=== PATIENT | female | born 1960 | race Caucasian/White ===

== ENCOUNTER 2020-03-07 14:05 | Emergency (ER) | payer MEDICARE ==
[~2020-03-07] VITALS: Ht 185.4 cm; Wt 111.9 kg
[~2020-03-07 14:05] MED LIST: ACET325T9 PO; ACET650T26 PO; ALBU2.5V5 NEB; ALBU2.5V8; ALBU2.5V8 IH; ALBU5SOL2 IH; ALPR1TAB2 PO; AMLO2.5T2 PO; AMLO5TAB10 PO; ATEN25TA42 PO; BUSP10TA PO; BUSP30TA PO; CARI350T PO; CARI350T14 PO; CEFP200T PO; CEFU250T PO; CELE200C PO; CIPR500T94 PO; CLON0.5T20 PO; DICL100T PO; ESCITALOPRAM OX20 MG PO; ESOM40CA PO; FENT1SPR SL; FLUT16SP21 NS; FLUT1DIS3 IH; HYDR-2155 PO; HYDR-2765 PO; LAMO100T37 PO; LORA-254 PO; LURA40TA PO; MECL-75 PO; MELO15TA23 PO; MELO15TA6 PO; MOME13HF IH; MORP30CP12 PO; NITR100C6 PO; ONDA4TAB10 SL; OXYC1TAB7 PO; OXYC1TAB8 PO; POTA8TAB PO; PRAZ2CAP2 PO; PRAZ5CAP2 PO; PREG150C PO; QUET300T5 PO; SPIR50TA4 PO; SULF1TAB24 PO; TAPE100T7 PO; TEMA30CA6 PO; THEO300T26 PO; THEO400T2 PO; TIOT18CA IH; TIZA4CAP PO; TRAM50TA PO; VENL150T PO; [UNRECOGNIZED DRUG - OTHER]; [UNRECOGNIZED DRUG - OTHER] PO; atarax PO; trazadone; venlafaxine
[2020-03-07 14:15] VITALS: BP 98/51
--- NOTE | 2020-03-07 14:59 | RAD ---
AP view of the right hand with lateral and oblique views of the right first digit. INDICATION: Smashed first digit in car door. FINDINGS: There is a nondisplaced fracture of the distal tuft of the first distal phalanx. There is associated subcutaneous swelling. No other fractures seen. Electronically signed by: Isiah Barrera MD (03/07/2020 2:56 PM) [id number]
--- NOTE | 2020-03-07 15:53 | PHYS DOC ---
Past History Past Medical History: Anxiety, Asthma, Cancer, COPD, Depression, Fibromyalgia, Hypertension, Pneumonia, Seizure, UTI, Other Additional Past Medical Histor: RLS Past Surgical History: Appendectomy, Cancer Surgery, Cholecystectomy, Hip Replacement, Tonsillectomy Smoking: Quit Greater Than 1 Year Alcohol Use: None Drug Use: None General Adult EDM: Chief Complaint: HAND PROBLEM HPI: HPI: 60-year-old female presents with right thumb pain. The patient slammed her thumb in a door at home 2 days ago. It is very swollen and is ecchymosis. She wants to make sure is not infected or broken. The pain is tolerable. She cannot fully flex the thumb due to the swelling. She denies any other injuries. Review of Systems: Review of Systems: Constitutional: Denies fever or chills Eyes: Denies change in visual acuity HENT: Denies nasal congestion or sore throat Respiratory: Denies cough or shortness of breath Cardiovascular: Denies chest pain or edema GI: Denies abdominal pain, nausea, vomiting, bloody stools or diarrhea : Denies dysuria Musculoskeletal: Right thumb pain Integument: Denies rash Neurologic: Denies headache, focal weakness or sensory changes Endocrine: Denies polyuria or polydipsia Lymphatic: Denies swollen glands Psychiatric: Denies depression or anxiety Heart Score: Risk Factors: Risk Factors: DM, Current or recent (<one month) smoker, HTN, HLP, family history of CAD, obesity. Risk Scores: Score 0 - 3: 2.5% MACE over next 6 weeks - Discharge Home Score 4 - 6: 20.3% MACE over next 6 weeks - Admit for Clinical Observation Score 7 - 10: 72.7% MACE over next 6 weeks - Early Invasive Strategies Allergies: Allergies: Allergies Coded Allergies Type Severity Reaction Last Updated Verified bupropion Allergy Intermediate 04/28/16 No bupropion HCl Allergy Intermediate high anxiety 11/05/13 Yes zolpidem Allergy Intermediate 04/28/16 No zolpidem tartrate Allergy Intermediate 04/28/16 Yes Physical Exam: PE: Constitutional: Well developed, well nourished, no acute distress, non-toxic appearance. [] HENT: Normocephalic, atraumatic, bilateral external ears normal, oropharynx moist, no oral exudates, nose normal. [] Eyes: PERRLA, EOMI, conjunctiva normal, no discharge. [] Neck: Normal range of motion, no tenderness, supple, no stridor. [] Cardiovascular:Heart rate regular rhythm, no murmur [] Lungs & Thorax: Bilateral breath sounds clear to auscultation [] Abdomen: Bowel sounds normal, soft, no tenderness, no masses, no pulsatile masses. [] Skin: Warm, dry, no erythema, no rash. [] Back: No tenderness, no CVA tenderness. [] Extremities: Right thumb with ecchymosis, swelling, tenderness. Recent bleeding under the nail with access to air. [] Neurologic: Alert and oriented X 3, normal motor function, normal sensory function, no focal deficits noted. [] Psychologic: Affect normal, judgement normal, mood normal. [] Current Patient Data: Vital Signs: Vital Signs Date Time Temp Pulse Resp B/P (MAP) Pulse Ox O2 Delivery O2 Flow Rate FiO2 03/07/20 14:15 98.1 70 20 98/51 (67) 97 Room Air EKG: EKG: [] Radiology/Procedures: Radiology/Procedures: [] Impressions: AP view of the right hand with lateral and oblique views of the right first digit. INDICATION: Smashed first digit in car door. FINDINGS: There is a nondisplaced fracture of the distal tuft of the first distal phalanx. There is associated subcutaneous swelling. No other fractures seen. Electronically signed by: Dutch Chung MD (03/07/2020 2:56 PM) [id number] DICTATED AND SIGNED BY: DUTCH CHUNG MD DATE: 03/07/20 1456 CC: COREY GOMES DO; SHRUTI BERG DO ~ Course & Med Decision Making: Course & Med Decision Making Pertinent Labs and Imaging studies reviewed. (See chart for details) The patient has a fracture of the distal tuft of the left thumb. We will place her in a splint. No further treatment is necessary. She is stable for discharge at this time. [] Dragon Disclaimer: Dragon Disclaimer: This electronic medical record was generated, in whole or in part, using a voice recognition dictation system. Departure Departure: Impression: Primary Impression: Fracture of distal phalanx of left thumb Qualified Codes: S62.525A - Nondisplaced fracture of distal phalanx of left thumb, initial encounter for closed fracture Disposition: HOME/RESIDENCE PRIOR TO ADM Condition: STABLE Referrals: SHRUTI BERG DO (PCP) Patient Instructions: Finger Fracture, [id number] Justification of Admission: Justification of Admission: Justification of Admission Dx: N/A COREY GOMES DO Mar 07, 2020 15:53
== END 2020-03-07 16:09 | disposition home or self-care (01) ==
LOC: ER 14:05
DX: S62.524A Nondisplaced fracture of distal phalanx of right thumb, initial encounter for closed fracture (principal); J44.9 Chronic obstructive pulmonary disease, unspecified; M79.7 Fibromyalgia; I10 Essential (primary) hypertension; Z87.440 Personal history of urinary (tract) infections; Z87.891 Personal history of nicotine dependence; Z88.8 Allergy status to other drugs, medicaments and biological substances; W23.0XXA Caught, crushed, jammed, or pinched between moving objects, initial encounter; Y93.89 Activity, other specified; Y92.89 Other specified places as the place of occurrence of the external cause; Y99.8 Other external cause status
CPT/HCPCS: 29125; 73140; 99283

== ENCOUNTER → 2020-06-23 | Outpatient (CLI) | payer OTHER, MEDICARE ==
[~2020-06-23] MED LIST changes: +AMLO-186 PO; -AMLO5TAB10 PO
--- NOTE | 2020-06-24 09:18 | RAD ---
Right wrist 3 views. HISTORY: Pain right wrist 3 views were taken of the right wrist. There is not evidence of an acute fracture or acute osseous abnormality. There is an old healed fracture the distal radius. IMPRESSION: 1. No acute osseous abnormality noted in the right wrist. Electronically signed by: Mitch Macias MD (06/24/2020 9:15 AM) [id number]
== END ==
LOC: DXRAD 15:30
PROVIDERS: ATTEND Physician Assistant
DX: S52.552D Other extraarticular fracture of lower end of left radius, subsequent encounter for closed fracture with routine healing (principal); X58.XXXD Exposure to other specified factors, subsequent encounter
CPT/HCPCS: 73110

== ENCOUNTER 2020-09-08 01:59 | Emergency (ER) | payer OTHER, MEDICARE ==
[~2020-09-08] VITALS: Ht 185.4 cm; Wt 111.9 kg
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
[2020-09-08] MEDS ORDERED: IV RINGERS SOLUTION,LACTATED 1,000 ML IV SCH (02:15)
[2020-09-08] MEDS ORDERED: MORPHINE SULFATE 10 MG/ML SYRINGE. SQ ONE (02:30)
[2020-09-08 03:10] LABS: BASO % 1 % (0-3); EOS # 0.2 x10^3/uL (0.0-0.7); EOS % 3 % (0-3); HEMATOCRIT 38.7 % (36.0-47.0); HEMOGLOBIN 12.6 g/dL (12.0-15.5); LYMPH # 1.8 x10^3/uL (1.0-4.8); LYMPH % 20 % (24-48); MEAN CORPUSCULAR HEMOGLOBIN 32 pg (25-35); MEAN CORPUSCULAR HGB CONC 33 g/dL (31-37); MEAN CORPUSCULAR VOLUME 98 fL (79-100); MONO # 0.4 x10^3/uL (0.0-1.1); MONO % 4 % (0-9); NEUT # 6.3 x10^3uL (1.8-7.7); NEUT % 72 % (31-73); PLATELET COUNT 149 x10^3/uL (140-400); RED BLOOD COUNT 3.93 x10^6/uL (3.50-5.40); RED CELL DISTRIBUTION WIDTH 13.4 % (11.5-14.5); WHITE BLOOD COUNT 8.7 x10^3/uL (4.0-11.0)
[2020-09-08 03:20] LABS: CALCIUM 8.5 mg/dL (8.5-10.1); CREATININE 0.9 mg/dL (0.6-1.0); GFR 63.9; POTASSIUM 3.7 mmol/L (3.5-5.1)
[2020-09-08 03:32] LABS: ALBUMIN 3.6 g/dL (3.4-5.0); DIRECT BILIRUBIN 0.1 mg/dL (0.0-0.2); TOTAL BILIRUBIN 0.3 mg/dL (0.2-1.0); TOTAL PROTEIN 5.9 g/dL (6.4-8.2)
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
[2020-09-08 04:23] LABS: BARBITURATES NEG (NEG); BENZODIAZEPINES NEG (NEG); CANNABINOIDS NEG (NEG); COCAINE NEG (NEG); METHADONE NEG (NEG); OPIATES POS (NEG); PHENCYCLIDINE NEG (NEG)
[2020-09-08 04:30] LABS: BACTERIA,URINE 0 /HPF (0-FEW); BILIRUBIN,URINE NEG (NEG); CLARITY,URINE CLEAR; COLOR,URINE YELLOW; GLUCOSE,URINE NEG (NEG); NITRITE,URINE NEG (NEG); RBC,URINE 0 /HPF (0-2); SQUAMOUS EPITHELIAL CELL,UR OCC /LPF; UROBILINOGEN,URINE 0.2 mg/dL (0.2 mg/dL)
[2020-09-08 04:36] LABS: AMPHETAMINE/METHAMPHETAMINE NEG (NEG)
--- NOTE | 2020-09-08 04:49 | EKG ---
[address] [address] Test Date: 2020-09-08 Test Time: 02:26:07 Pat Name: MATT SAUNDERS Department: Room: Gender: F [employer] Education Paraeducator: HARRISON : 1960 Requested By: JULIETH SIFUENTES Order Number: [id number] Reading MD: Measurements Intervals Union Rate: 60 P: 52 TX: 184 QRS: 18 QRSD: 86 T: 1 QT: 424 QTc: 424 Interpretive Statements SINUS RHYTHM NORMAL ECG RI6.02 No previous ECG available for comparison
--- NOTE | 2020-09-08 05:12 | RAD ---
XR EXAM OF ANKLE_RIGHT 3VIEWS, XR FOOT_RIGHT 3 VIEWS Clinical Indication: Reason: pain / Comparison: None. Ankle Findings: There is acute traumatic fracture of the talus. A fracture fragment is medially displaced and overlap s with the tip of the medial malleolus. Fracture line is best seen on the lateral view and is oriente d vertically and involves the mid talus. Question whether there is subtalar joint widening. The ankle mortise is intact. There is no soft tissue swelling of the ankle. Foot findings: There is no acute fracture or dislocation of the forefoot. The bony alignment is normal. There is no soft tissue abnormality. IMPRESSION: Acute traumatic mildly displaced fracture of the talus. Consider further evaluation with CT of the an kle. Electronically signed by: Jesus Ozuna MD (09/08/2020 5:09 AM) NICOLLE
[2020-09-08] MEDS ORDERED: HYDR-1179 PO (05:27)
[2020-09-08] MEDS ORDERED: CYCL-331 PO (05:27)
[2020-09-08] MEDS ORDERED: IOHEXOL 350 MG/ML 100 ML VIAL. IV ONE (06:30)
[2020-09-08] MEDS ORDERED: CONTRAST GIVEN. MC PRN (06:30)
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
[2020-09-08 08:30] VITALS: BP 119/66
== END 2020-09-08 10:05 | disposition short-term general hospital (02) ==
LOC: ER 01:59
DX: S92.101A Unspecified fracture of right talus, initial encounter for closed fracture (principal); S30.1XXA Contusion of abdominal wall, initial encounter; S20.212A Contusion of left front wall of thorax, initial encounter; S80.11XA Contusion of right lower leg, initial encounter; J44.9 Chronic obstructive pulmonary disease, unspecified; F41.9 Anxiety disorder, unspecified; F32.9 Major depressive disorder, single episode, unspecified; M79.7 Fibromyalgia; I10 Essential (primary) hypertension; Z87.440 Personal history of urinary (tract) infections; Z87.891 Personal history of nicotine dependence; Z88.8 Allergy status to other drugs, medicaments and biological substances; V49.49XA Driver injured in collision with other motor vehicles in traffic accident, initial encounter; Y93.I9 Activity, other involving external motion; Y92.488 Other paved roadways as the place of occurrence of the external cause; Y99.8 Other external cause status
CPT/HCPCS: 29515; 36415; 70450; 71045; 71275; 72125; 73590; 73610; 73630; 73700; 74177; 80048; 80076; 80307; 81001; 82550; 83690; 83735; 83880; 84484; 85025; 85610; 85730; 87086; 93005; 96361; 96372; 96374; 99285; J2270; J3010; J7120; Q9967